=== PATIENT | female | born 1970 | race Caucasian/White ===

== ENCOUNTER 2022-02-26 09:35 | Emergency (ER) | payer MEDICARE, MEDICAID, SELFPAY ==
[2022-02-26 09:38] VITALS: BP 121/74; PULSE 41; RESP 17; TEMP 36.4; O2SAT 98; BMI 31.9
--- NOTE | 2022-02-26 09:47 | EKG12_ITS ---
Test Reason : SLOW HR Blood Pressure : / mmHG Vent. Rate : 035 BPM Atrial Rate : 035 BPM P-R Int : 182 ms QRS Dur : 150 ms QT Int : 512 ms P-R-T Axes : 055 -50 -04 degrees QTc Int : 390 ms Marked sinus bradycardia Right bundle branch block Left anterior fascicular block Bifascicular block Abnormal ECG Confirmed by DAE FINLEY, KERWIN ([id number]), non linear editor KEVIN WISE ([id number]) on 03/02/2022 7:26:36 AM Referred By: TL Confirmed By:KERWIN PEARL MD
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
[2022-02-26] MEDS: Ibuprofen 600 MG Tablet PO (10:24)
--- NOTE | 2022-02-26 12:38 | NURSING ---
SPOKE WITH KAITLYN FROM [facility]YS[facility], ETA OF 60 MINUTES AT THIS TIME TO GET PT BACK TO [facility]
== END 2022-02-26 14:22 | disposition home or self-care (01) ==
PROVIDERS: Emergency Provider Emergency Medicine; Visit Provider Emergency Medicine
DX: S39.012A Strain of muscle, fascia and tendon of lower back, initial encounter (principal); R00.1 Bradycardia, unspecified; M41.9 Scoliosis, unspecified; I45.2 Bifascicular block; Z87.891 Personal history of nicotine dependence; V48.6XXA Car passenger injured in noncollision transport accident in traffic accident, initial encounter
CPT/HCPCS: 72100; 93005; 93225; 93226; 99285

== ENCOUNTER → 2022-02-26 | Outpatient (CLI) | payer MEDICARE, MEDICAID, SELFPAY | END | disposition home or self-care (01) | LOC: CVS 11:34 | PROVIDERS: Visit Provider Emergency Medicine | DX: R00.1 Bradycardia, unspecified (principal) | CPT/HCPCS: 93225; 93226 ==